=== PATIENT | male | born 2000 | race Hispanic/Latino ===

== ENCOUNTER 2024-06-15 09:51 | Day surgery (SDC) | payer MEDICAID ==
[2024-06-14 12:08] LABS: BASOPHILS # (AUTO) 0.05 K/uL (0.00-0.20); BASOPHILS % (AUTO) 0.7 % (0.0-5.0); EOSINOPHILS # (AUTO) 0.11 K/uL (0.00-0.70); EOSINOPHILS % (AUTO) 1.5 % (0.0-8.0); HEMATOCRIT 45.5 % (42-54); IMMATURE GRANULOCYTE ABSOLUTE 0.01 K/uL (0-1); LYMPHOCYTES # (AUTO) 2.5 K/uL (1.0-4.8); LYMPHOCYTES % (AUTO) 34.7 % (21.0-51.0); MEAN CORPUSCULAR HEMOGLOBIN 29.6 pg (27.0-33.0); MEAN CORPUSCULAR HGB CONC 33.4 g/dL (32.0-36.0); MEAN CORPUSCULAR VOLUME 88.5 fL (79-99); MONOCYTES # (AUTO) 0.8 K/uL (0.1-1.0); MONOCYTES % (AUTO) 10.7 % (3.0-13.0); NEUTROPHILS # (AUTO) 3.8 K/uL (1.8-7.7); NEUTROPHILS % (AUTO) 52.3 % (40.0-77.0); PLATELET COUNT (AUTO) 263 K/uL (130-400); RED BLOOD CELL COUNT(AUTO) 5.14 MIL/uL (4.50-6.20); RED CELL DISTRIBUTION WIDTH 12.3 % (11.0-15.5); WHITE BLOOD COUNT (AUTO) 7.2 K/uL (4.8-10.8)
[2024-06-14 12:23] VITALS: BP 110/56; PULSE 88; RESP 14; TEMP 98.2
[2024-06-14 12:25] LABS: INR 1.06 (0.85-1.15); PROTHROMBIN TIME 11.4 SEC (9.6-11.6)
[2024-06-14 12:27] LABS: CREATININE 0.8 mg/dL (0.5-1.3); PARTIAL THROMBOPLASTIN TIME 30.9 SEC (26.3-35.5); POTASSIUM 4.4 mmol/L (3.5-5.1)
[2024-06-15] VITALS (13 sets, daily range): BP systolic 105–117; BP diastolic 52–71; PULSE 88–116; RESP 15–19; TEMP 97.6–98
[~2024-06-15] VITALS: Ht 165.1 cm; Wt 71.4 kg
[2024-06-15] MEDS: BUPIvacaine/PF 0.5% 30ML VIAL ONE
[~2024-06-15 09:51] MED LIST: NASONEX NASAL
[2024-06-15] MEDS ORDERED: rocuRONium bROMide 10MG/1ML 5ML VL ONE (10:31)
[2024-06-15] MEDS ORDERED: FENTanyl CITRate PF 50 MCG/1 ML 2ML VIAL ONE ×4 (10:31→13:18)
[2024-06-15] MEDS ORDERED: MIDAZOLAM HCL 1 MG/ML 2ML VIAL ONE (10:31)
[2024-06-15] MEDS ORDERED: proPOFol 10 MG/ML 20ML VIAL IV ONE (10:31)
[2024-06-15] MEDS: LACTATED RINGERS 1000ML 1,000 ML IV ONE (10:39)
[2024-06-15] MEDS: ceFAZolin SODIUM 2 GM VIAL ONE (10:40)
[2024-06-15] MEDS ORDERED: FENTanyl CITRate PF 50 MCG/1 ML 5ML AMP IV ONE (10:46)
[2024-06-15] MEDS ORDERED: ondanSETRON 4MG INJ ONE (13:18)
[2024-06-15] MEDS: MEPERIDINE-PF 25 MG/ML SYG ONE (13:42)
--- NOTE | 2024-06-15 13:56 | OP ---
Operative Note: DATE OF PROCEDURE: 06/15/24 SURGEON: LUIS SRINIVASAN DPM TITLE CURATIVE SPECIALIST: None ANESTHESIA: General PREOPERATIVE DIAGNOSIS: 1. 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 Cavovarus foot left foot 3. Fbiytcg-Ohdkk-Skppw deformity left foot 4. Metatarsalgia left foot POSTOPERATIVE DIAGNOSIS: Same Findings: Reduction of deformity achieved PROCEDURE: 1. Revision triple arthrodesis left foot 2. 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 He had severe malunion of the left foot with residual cavovarus foot deformity with contracture of the posteromedial soft tissues which is causing pain in the lateral column and submetatarsal areas that are not responsive to conservative measures. Similar problem was found on the contralateral side which I reconstructed, and he had a significant improvement. He wants to have the same procedure on the left foot. Injectables: 20 cc of 0.5% Marcaine plain postoperatively Specimen: None Materials: Cannulated headless 7.0 mm cancellous screw x1, 5.5 mm headless cannulated cancellous screws x3, 2 0 and 3-0 Vicryl, 3-0 nylon Hemostasis: Pneumatic thigh tourniquet at 300 mm Hg for 112 minutes DESCRIPTION OF PROCEDURE: The patient was brought into the operating room and placed on table in a supine position and general anesthesia was induced. Time-out was called with all the staff in the room to identify the patient procedure and procedure site. Patient's left lower extremity was prepped and draped in usual aseptic manner exsanguinated utilizing Esmarch bandage and pneumatic thigh tourniquet was inflated at 300 mm Hg. 2 linear longitudinal incision was made over the old incision which were utilized for triple arthrodesis previously. Lateral incision was over the calcaneus at the subtalar joint area and medial 1 was over the tn NC joint. Incisions were deepened through the subcutaneous tissue layer care being taken to retract all the vital structures. Small bleeders were coagulated as necessary. Procedure 1. Capsule tendon ligament release midfoot and posteromedial foot for residual cavovarus deformity: Periosteal incision was made over the subtalar joint laterally and over the tn joint medially. At this point through and through osteotomy was made in the midfoot area over the old arthrodesis site for previous triple arthrodesis. Wed ge resection was made to take more bone from lateral dorsal aspect in order to reduce transverse and sagittal plane deformities the forefoot was also externally rotated to reduced forefoot varus deformity. Alignment of the 2nd digit was made with the anterior crest of the tibia and the transverse plane. Deltoid ligaments on the medial aspect of the ankle joint capsule was released. 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 PT tendon was released and medial band of the plantar fascial layer was released. Procedure 2 vision triple arthrodesis left foot Alignment of the forefoot onto the rearfoot after revising previous triple arthrodesis was temporary fixated and checked under the fluoroscopy in multiple views. Forefoot was aligned with the rearfoot. Permanent fixation was achieved utilizing above screws placed in lag fashion by design. Placed in and of the internal fixation devices were confirmed under fluoroscopy in multiple views. Surgical wounds were irrigated aggressively utilizing copious amounts of normal sterile saline with a pressure. The deep fascial layers were reapproximated utilizing 2-0 Vicryl and subcutaneous tissue layer via 3-0 Vicryl. Skin incision was reapproximated utilizing 3-0 nylon. Surgical wounds were dressed with a dry sterile dressing followed by Li compression dressing. The patient tolerated the procedure and anesthesia well. LUIS SRINIVASAN DPM Jun 15, 2024 13:56
--- NOTE | 2024-06-15 14:51 | HMCIMG ---
FOOT LIMITED 2VWS LT REASON: ORIF LEFT FOOT ARTHODESIS, SX TECHNIQUE: 9 surgical spot views were obtained. These document hardware placement for left midfoot arthrodesis procedure. Fluoroscopy time was 42.1 seconds. Impression: 1. Documentation of left midfoot arthrodesis procedure.
== END 2024-06-15 14:45 | disposition home or self-care (01) ==
LOC: DAH 09:51
PROVIDERS: ATTEND Podiatrist
DX: Q66.12 Congenital talipes calcaneovarus, left foot (principal); A52.16 Charcot's arthropathy (tabetic); M77.42 Metatarsalgia, left foot; G60.0 Hereditary motor and sensory neuropathy; Z79.01 Long term (current) use of anticoagulants; Z98.1 Arthrodesis status; Z79.899 Other long term (current) drug therapy
CPT/HCPCS: 80048; 85025; 85610; 85730; 36415; 28234; 27899; 73620; A6260; C1713 ×4; C1769; A4663; A4649 ×2; J7120; J3010 ×5; J3490; J2250; J2704 ×2; J2405; J0665; J2175; J0690; A4930 ×2; A4215; A4223; A4222; A4221